=== PATIENT | male | born 1955 | race Caucasian/White ===

== ENCOUNTER → 2018-03-04 | Outpatient (CLI) | payer OTHER ==
[~2018-03-04] MED LIST: CELEBREX200 MG PO; DIATRIZOATE MEGL/DIATRIZOA SOD 30 ML BTL PO ONE; IOPAMIDOL 370 MG/ML 200 ML INFUS..BTL INJ ONE; LORTAB 10-5001 EACH PO; SODIUM CHLORIDE 0.9% 50ML 50 ML ONE
[2018-03-04 17:00] LABS: BLOOD UREA NITROGEN 15 mg/dL (7-26); BUN/CREATININE RATIO 17 (6-25); CREATININE, SERUM 0.88 mg/dL (0.72-1.25); EST GLOMERULAR FILTRATION RATE > 60 ML/MIN (60-)
--- NOTE | 2018-03-04 17:47 | Diagnostic Imaging Report ---
PROCEDURE: CT ABDOMEN AND PELVIS WITH CONTRAST TECHNIQUE: The abdomen and pelvis were scanned utilizing a multidetector helical scanner from the diaphragm to the lesser trochanter after the IV administration of 100 cc of Isovue 370 and the oral administration of Gastrografin. Coronal and sagittal multiplanar reformations were obtained. COMPARISON: CT abdomen pelvis 02/18/16. INDICATIONS: ACUTE LEFT LOWER QUADRANT PAIN FINDINGS: LOWER THORAX: Normal. HEPATOBILIARY: Diffuse hepatic steatosis. No focal hepatic lesions. No biliary ductal dilatation. SPLEEN: No splenomegaly. PANCREAS: No focal masses or ductal dilatation. ADRENALS: No adrenal nodules. Unchanged mild nodularity of bilateral adrenal glands asia, which measured less than 0 Hounsfield units, consistent with benign adenoma or adrenal hyperplasia. KIDNEYS/URETERS: No hydronephrosis or solid mass lesions. Unchanged 0.2 cm stone lower pole of the left kidney. PELVIC ORGANS/BLADDER: The prostate measures 5.1 cm in transverse dimension with coarse dystrophic calcifications. Bladder is incompletely distended. Minimal inflammatory changes along the anterior aspect bladder, previously present and unchanged. PERITONEUM / RETROPERITONEUM: No free air or fluid. LYMPH NODES: No lymphadenopathy. VESSELS: Unremarkable. GI TRACT: No distention or wall thickening. It is not visualized. No diverticula suggest diverticulitis. BONES AND SOFT TISSUES: Unremarkable. IMPRESSION: 1. Unchanged 0.2 cm stone in lower pole of left kidney, previously present on 02/18/2016. 2. No diverticulitis. 3. Diffuse hepatic steatosis. Dictated by: Royer Bryant M.D. on 03/04/2018 at 17:50 Electronically approved by: Royer Bryant M.D. on 03/04/2018 at 17:50
== END ==
LOC: CT 15:57
PROVIDERS: ATTEND Family Medicine
DX: R10.32 Left lower quadrant pain (principal)
CPT/HCPCS: 36415; 74177; 82565; 84520; Q9967